=== PATIENT | male | born 1955 | race Native Hawaiian/Other Pacific Islander ===

== ENCOUNTER 2018-12-18 09:21 | Outpatient (CLI) | payer OTHER | END 2018-12-18 19:11 | disposition home or self-care (01) | LOC: US 09:21 | DX: R10.9 Unspecified abdominal pain (principal) ==

== ENCOUNTER 2018-12-27 12:55 | Outpatient (CLI) | payer OTHER | END 2018-12-27 19:22 | disposition home or self-care (01) | LOC: CT 12:55 | DX: R10.9 Unspecified abdominal pain (principal) | CPT/HCPCS: 36415; 82565; 84520; Q9963 ==

== ENCOUNTER 2018-12-29 18:15 | Inpatient (IN) | payer OTHER ==
[~2018-12-29] VITALS: Ht 177.8 cm; Wt 116.1 kg
[2018-12-29 20:00] VITALS: BP 147/86; TEMP 98.4
[2018-12-29 20:04] LABS: PLATELET COUNT 349 K/uL (142-355)
[2018-12-29 20:14] LABS: POTASSIUM 3.7 mmol/L (3.6-5.2)
[2018-12-30] VITALS (7 sets, daily range): BP systolic 111–149; BP diastolic 69–91; TEMP 97.7–99.3; Ht 177.8 cm; Wt 116.1 kg
[2018-12-31 04:00] VITALS: BP 125/74; TEMP 98.9
[2018-12-31 07:01] LABS: PLATELET COUNT 332 K/uL (142-355)
[2018-12-31 07:15] LABS: POTASSIUM 3.5 mmol/L (3.6-5.2)
[2018-12-31 08:00] VITALS: BP 132/79; TEMP 97.6
[2018-12-31 12:00] VITALS: BP 118/75; TEMP 98.1
[2018-12-31 16:00] VITALS: BP 118/84; TEMP 98.1
[2018-12-31 20:00] VITALS: BP 146/81; TEMP 98.2
[2019-01-01] VITALS: BP 141/83; TEMP 98.2
[2019-01-01 04:00] VITALS: BP 126/79; TEMP 98.2
[2019-01-01 08:08] VITALS: BP 126/76; TEMP 97.9
[2019-01-01 12:00] VITALS: BP 133/84; TEMP 97.6
[2019-01-01 16:00] VITALS: BP 126/76; TEMP 97.9
[2019-01-01 20:00] VITALS: BP 141/84; TEMP 98
[2019-01-02] VITALS (17 sets, daily range): BP systolic 103–199; BP diastolic 46–110; TEMP 97.4–98.7
[2019-01-02 18:49] LABS: PLATELET COUNT 351 K/uL (142-355)
[2019-01-02 19:52] LABS: POTASSIUM 3.9 mmol/L (3.6-5.2)
[2019-01-03] VITALS (15 sets, daily range): BP systolic 114–141; BP diastolic 53–86; TEMP 97.9–98.7
[2019-01-03 06:51] LABS: PLATELET COUNT 352 K/uL (142-355)
[2019-01-03 07:08] LABS: POTASSIUM 3.8 mmol/L (3.6-5.2)
[2019-01-04] VITALS: BP 99/72; TEMP 98.6
[2019-01-04 04:00] VITALS: BP 141/90; TEMP 97.9
[2019-01-04 06:05] LABS: POTASSIUM 3.6 mmol/L (3.6-5.2)
[2019-01-04 06:18] LABS: PLATELET COUNT 327 K/uL (142-355)
[2019-01-04 08:00] VITALS: BP 126/73; TEMP 97.6
[2019-01-04 12:00] VITALS: BP 160/89; TEMP 98.1
== END 2019-01-04 14:25 | disposition home or self-care (01) | DRG 416 ==
LOC: MED/SURG 18:15 → ICU 01-02 18:42 → MED/SURG 01-03 13:30
PROVIDERS: Student in an Organized Health Care Education/Training Program; ADMIT Internal Medicine
PROC: 0FT40ZZ Resection of Gallbladder, Open Approach (ICD-10-PCS; principal; 2019-01-02)
PROC: 0FJ44ZZ Inspection of Gallbladder, Percutaneous Endoscopic Approach (ICD-10-PCS; 2019-01-02)
PROC: 5A1935Z Respiratory Ventilation, Less than 24 Consecutive Hours (ICD-10-PCS; 2019-01-02)
PROC: 0BH17EZ Insertion of Endotracheal Airway into Trachea, Via Natural or Artificial Opening (ICD-10-PCS; 2019-01-02)
DX: K81.2 Acute cholecystitis with chronic cholecystitis (principal); E11.40 Type 2 diabetes mellitus with diabetic neuropathy, unspecified; R51 Headache; K21.9 Gastro-esophageal reflux disease without esophagitis; I10 Essential (primary) hypertension; R33.8 Other retention of urine
CPT/HCPCS: 80053; 81000; 83605; 85027; 87040; 87086; 87088; 93005; 94002; 94760; A9576; C1726; C1729; J0132; J0330; J0744; J1100; J1170; J1644; J1815; J1885; J2001; J2060; J2250; J2270; J2405; J2704; J2765; J3010; J3490

== ENCOUNTER 2019-02-10 04:35 | Inpatient (IN) | payer OTHER ==
[~2019-02-10] VITALS: Ht 175.3 cm; Wt 107.3 kg
[2019-02-10 04:42] VITALS: BP 143/85; TEMP 97.8
[2019-02-10 05:43] LABS: PLATELET COUNT 308 K/uL (142-355)
[2019-02-10 06:01] LABS: POTASSIUM 3.7 mmol/L (3.6-5.2); SODIUM 137 mmol/L (136-145)
[2019-02-10 12:00] VITALS: BP 148/95; TEMP 97.8
[2019-02-10] MEDS ORDERED: GABA300C2 PO (15:55)
[2019-02-10] MEDS ORDERED: METF500T PO (15:56)
[2019-02-10] MEDS ORDERED: METFTAB PO (17:06)
[2019-02-10] MEDS ORDERED: GLIM4TAB PO (17:07)
[2019-02-10 17:10] VITALS: BP 155/88; TEMP 97.9; Ht 175.3 cm; Wt 107.3 kg
[2019-02-10 20:00] VITALS: BP 130/75; TEMP 98.2
[2019-02-11] VITALS: BP 136/88; TEMP 98.3
[2019-02-11 04:00] VITALS: BP 108/75; TEMP 97.8
[2019-02-11 05:46] LABS: POTASSIUM 3.7 mmol/L (3.6-5.2)
[2019-02-11 08:00] VITALS: BP 142/91; TEMP 98.2
[2019-02-11 12:00] VITALS: BP 108/84; TEMP 97.9
[2019-02-11 16:00] VITALS: BP 142/83; TEMP 97.6
[2019-02-11 20:00] VITALS: BP 130/76; TEMP 98.4
[2019-02-12] VITALS: BP 136/78; TEMP 98.5
[2019-02-12 04:00] VITALS: BP 133/81; TEMP 98.2
[2019-02-12 08:00] VITALS: BP 148/92; TEMP 98.1
[2019-02-12 12:00] VITALS: BP 133/90; TEMP 97.4
[2019-02-12 16:00] VITALS: BP 134/91; TEMP 97.8
[2019-02-12 20:00] VITALS: BP 153/90; TEMP 98
[2019-02-13] VITALS: BP 122/74; TEMP 98.3
[2019-02-13 04:00] VITALS: BP 120/66; TEMP 98.3
[2019-02-13 08:00] VITALS: BP 118/77; TEMP 97.6
[2019-02-13 11:02] LABS: PLATELET COUNT 304 K/uL (142-355)
[2019-02-13 11:04] LABS: POTASSIUM 3.3 mmol/L (3.6-5.2)
[2019-02-13 12:00] VITALS: BP 121/81; TEMP 97.8
[2019-02-13 16:00] VITALS: BP 111/71; TEMP 97.8
[2019-02-13 20:00] VITALS: BP 113/66; TEMP 97.9
[2019-02-14] VITALS: BP 118/75; TEMP 97.5
[2019-02-14 04:00] VITALS: BP 121/78; TEMP 97.8
[2019-02-14 08:06] VITALS: BP 121/76; TEMP 98.5
[2019-02-14 10:19] LABS: POTASSIUM 3.6 mmol/L (3.6-5.2)
== END 2019-02-14 12:00 | disposition home or self-care (01) | DRG 948 ==
LOC: ED 04:35 → MED/SURG 07:00
PROVIDERS: Emergency Medicine; ADMIT Internal Medicine
DX: R60.0 Localized edema (principal); E11.42 Type 2 diabetes mellitus with diabetic polyneuropathy; E87.8 Other disorders of electrolyte and fluid balance, not elsewhere classified; I10 Essential (primary) hypertension; R79.89 Other specified abnormal findings of blood chemistry
CPT/HCPCS: 36600; 80048; 80053; 82550; 82553; 82805; 83880; 84484; 85027; 85379; 93005; 93306; 99283; J1644; J1650; J1815; J1885; J1940

== ENCOUNTER 2019-02-22 09:05 | Outpatient (CLI) | payer OTHER ==
[~2019-02-22 09:05] MED LIST: GABA300C2 PO; GLIM4TAB PO; METF500T PO; METFTAB PO
[2019-02-22 09:45] LABS: POTASSIUM 3.6 mmol/L (3.6-5.2)
== END 2019-02-22 19:16 | disposition home or self-care (01) ==
LOC: LABW 09:05
PROVIDERS: Internal Medicine
DX: Z79.899 Other long term (current) drug therapy (principal)
CPT/HCPCS: 36415; 80048

== ENCOUNTER 2019-03-29 07:45 | Outpatient (CLI) | payer OTHER | END 2019-03-29 23:08 | disposition home or self-care (01) | LOC: NM 07:45 | DX: R00.2 Palpitations (principal); R07.89 Other chest pain | CPT/HCPCS: A9500; J2785 ==

== ENCOUNTER 2019-05-11 09:03 | Outpatient (CLI) | payer OTHER ==
[2019-05-11 10:28] LABS: PLATELET COUNT 224 K/uL (142-355)
[2019-05-11 10:58] LABS: POTASSIUM 3.9 mmol/L (3.6-5.2)
== END 2019-05-11 23:31 | disposition home or self-care (01) ==
LOC: LABW 09:03
PROVIDERS: Nurse Practitioner
DX: E11.43 Type 2 diabetes mellitus with diabetic autonomic (poly)neuropathy (principal); E78.00 Pure hypercholesterolemia, unspecified; E55.9 Vitamin D deficiency, unspecified; E53.8 Deficiency of other specified B group vitamins; Z12.5 Encounter for screening for malignant neoplasm of prostate; R53.82 Chronic fatigue, unspecified; N40.0 Benign prostatic hyperplasia without lower urinary tract symptoms
CPT/HCPCS: 36415; 80053; 80061; 82043; 82306; 82570; 82607; 83036; 84153; 84443; 85027

== ENCOUNTER 2019-10-15 13:30 | Outpatient (CLI) | payer OTHER | END 2019-10-15 19:28 | disposition home or self-care (01) | LOC: LAB 13:30 | DX: E11.43 Type 2 diabetes mellitus with diabetic autonomic (poly)neuropathy (principal); E03.8 Other specified hypothyroidism; E55.9 Vitamin D deficiency, unspecified | CPT/HCPCS: 82306; 83036; 84439; 84443; 84481 ==

== ENCOUNTER 2019-11-25 19:16 | Inpatient (IN) | payer OTHER ==
[~2019-11-25] VITALS: Ht 175.3 cm; Wt 118.1 kg
[2019-11-25 19:25] VITALS: BP 130/78; TEMP 102.5
[2019-11-25 19:57] LABS: PLATELET COUNT 447 K/uL (142-355)
[2019-11-25 20:00] VITALS: BP 129/76
[2019-11-25 20:01] LABS: POTASSIUM 3.8 mmol/L (3.6-5.2)
[2019-11-25 20:30] VITALS: BP 119/67
[2019-11-25 21:00] VITALS: BP 120/79
[2019-11-25 21:30] VITALS: BP 119/68; TEMP 97.7
--- NOTE | 2019-11-25 21:45 | NUR ---
RECEIVED FROM ER VIA WC. ALERT AND ORIENTED X 3. EDUCATION GIVEN REGARDING CALL LIGHT AND BED CONTROLS. INSTRUCTED TO KEEP BED IN LOW POSITION. PATIENT VEBALIZED UNDERSTANDING. 20G TO LAC INTACT WITH NS INFUSING AT 200CC/HR. REFER TO ADMISSION ASSESSMENT FOR FUTHER DETAILS.
[2019-11-25 22:19] VITALS: BP 108/71; TEMP 97.8; Ht 175.3 cm; Wt 118.1 kg
[2019-11-26] VITALS: BP 104/62; TEMP 98.8
[2019-11-26 04:00] VITALS: BP 111/65; TEMP 97.4
[2019-11-26 08:00] VITALS: BP 126/74; TEMP 97.5
[2019-11-26 12:00] VITALS: BP 124/72; TEMP 98.1
[2019-11-26 16:00] VITALS: BP 130/75; TEMP 100.8
[2019-11-26] MEDS ORDERED: GABA300C2 PO (16:31)
[2019-11-26] MEDS ORDERED: LIPITOR20 MG PO (16:32)
[2019-11-26] MEDS ORDERED: ERGOCALCIF50000 UNIT PO (16:34)
[2019-11-26] MEDS ORDERED: LEVO-T25 MCG PO (16:34)
[2019-11-26] MEDS ORDERED: OMEPRAZOLE40 MG PO (16:35)
[2019-11-26] MEDS ORDERED: QBRELIS1 MG/ML PO (16:36)
[2019-11-26] MEDS ORDERED: LEVSIN/SL0.125 MG SL (16:36)
[2019-11-26] MEDS ORDERED: FURO40TA93 PO (16:37)
[2019-11-26] MEDS ORDERED: MONT10TA PO (16:38)
[2019-11-26] MEDS ORDERED: TRICOR145 M1 PO (16:38)
[2019-11-26] MEDS ORDERED: ALBU90AE13 INH (16:39)
[2019-11-26 20:00] VITALS: BP 123/64; TEMP 98.6
[2019-11-27] VITALS: BP 131/74; TEMP 101.9
[2019-11-27 04:00] VITALS: BP 121/69; TEMP 98.2
--- NOTE | 2019-11-27 05:10 | NUR ---
HOLD METFORMIN X 48 HOURS PER PROTOCOL
[2019-11-27 08:00] VITALS: BP 121/77; TEMP 97.4
[2019-11-27 08:06] LABS: PLATELET COUNT 418 K/uL (142-355)
[2019-11-27 08:29] LABS: POTASSIUM 3.1 mmol/L (3.6-5.2)
[2019-11-27 11:50] LABS: PARTIAL THROMBOPLASTIN TIME 26.9 SECONDS (24.5-33.6)
[2019-11-27 12:00] VITALS: BP 131/71; TEMP 97.7
[2019-11-27 16:00] VITALS: BP 134/84; TEMP 97.6
--- NOTE | 2019-11-27 18:21 | NUR ---
1600 REC'D CALL FROM [facility] WITH DR. LOERA. PT NEEDS TO BE NPO AFTER 0600 ON 11-28-2019 FOR PROCEDURE TO BE PREFORMED AROUND 1130.
[2019-11-27 20:00] VITALS: BP 116/73; TEMP 103
[2019-11-28] VITALS (7 sets, daily range): BP systolic 116–129; BP diastolic 66–80; TEMP 97.8–99.4
[2019-11-28 04:41] LABS: PLATELET COUNT 432 K/uL (142-355)
[2019-11-28 04:59] LABS: POTASSIUM 3.2 mmol/L (3.6-5.2)
--- NOTE | 2019-11-28 15:18 | NUR ---
PT BACK FROM PROCEDURE DRAIN TUBE NOTED TO RIGHT LOWER QUAD WITH APROX 100 CC JAMES MILKING DRAINAGE NOTED IN BAG
[2019-11-29 04:00] VITALS: BP 119/70; TEMP 98.1
[2019-11-29 08:00] VITALS: BP 114/65; TEMP 97.8
[2019-11-29 10:08] LABS: PLATELET COUNT 455 K/uL (142-355)
[2019-11-29 10:10] LABS: POTASSIUM 3.3 mmol/L (3.6-5.2)
[2019-11-29 12:00] VITALS: BP 131/84; TEMP 97.8
== END 2019-11-29 14:18 | disposition home or self-care (01) | DRG 871 ==
LOC: ED 19:16 → MED/SURG 21:00
PROVIDERS: Family Medicine; Hospitalist; ADMIT Internal Medicine
PROC: 0F9130Z Drainage of Right Lobe Liver with Drainage Device, Percutaneous Approach (ICD-10-PCS; principal; 2019-11-28)
DX: A41.89 Other specified sepsis (principal); K75.0 Abscess of liver; E46 Unspecified protein-calorie malnutrition; E03.8 Other specified hypothyroidism; E11.65 Type 2 diabetes mellitus with hyperglycemia; I10 Essential (primary) hypertension; E78.49 Other hyperlipidemia; K21.9 Gastro-esophageal reflux disease without esophagitis; E87.6 Hypokalemia; I50.9 Heart failure, unspecified
CPT/HCPCS: 36415; 80048; 80053; 80202; 81000; 81002; 82550; 82948; 83605; 83735; 84484; 85027; 85610; 85730; 87040; 87070; 87076; 87205; 87502; 87651; 87899; 93005; 94640; 94664; 94760; 96360; 96361; 96365; 96366; 99284; J1650; J1815; J1956; J2185; J3370; J3475; Q9963

== ENCOUNTER 2019-12-13 08:57 | Outpatient (CLI) | payer OTHER ==
[~2019-12-13 08:57] MED LIST changes: +ALBU90AE13 INH; +ERGOCALCIF50000 UNIT PO; +FURO40TA93 PO; +LEVO-T25 MCG PO; +LEVSIN/SL0.125 MG SL; +LIPITOR20 MG PO; +MONT10TA PO; +OMEPRAZOLE40 MG PO; +QBRELIS1 MG/ML PO; +TRICOR145 M1 PO
== END 2019-12-13 23:04 | disposition home or self-care (01) ==
LOC: CT 08:57
DX: R18.8 Other ascites (principal)
CPT/HCPCS: Q9963

== ENCOUNTER 2020-05-26 11:57 | Outpatient (CLI) | payer OTHER | END 2020-05-26 21:50 | disposition home or self-care (01) | LOC: LAB 11:57 | DX: Z20.828 Contact with and (suspected) exposure to other viral communicable diseases (principal) | CPT/HCPCS: 87635; G2023; U00003 ==

== ENCOUNTER 2020-08-27 10:22 | Emergency (ER) | payer OTHER ==
[~2020-08-27] VITALS: Ht 177.8 cm; Wt 103.9 kg
[2020-08-27 10:28] VITALS: BP 111/75; TEMP 98
== END 2020-08-27 12:56 | disposition home or self-care (01) ==
LOC: ED 10:22
PROC: 0HDGXZZ Extraction of Left Hand Skin, External Approach (ICD-10-PCS; principal; 2020-08-27)
DX: S61.102A Unspecified open wound of left thumb with damage to nail, initial encounter (principal); W27.8XXA Contact with other nonpowered hand tool, initial encounter; Y93.H2 Activity, gardening and landscaping; Y92.89 Other specified places as the place of occurrence of the external cause
CPT/HCPCS: 90471; 90715; 99283; J3490

== ENCOUNTER 2021-01-06 14:01 | Outpatient (CLI) | payer OTHER ==
[2021-01-06 15:08] LABS: PLATELET COUNT 451 K/uL (142-355)
[2021-01-06 15:19] LABS: POTASSIUM 2.7 mmol/L (3.6-5.2)
== END 2021-01-06 21:08 | disposition home or self-care (01) ==
LOC: LABW 14:01
PROVIDERS: ATTEND Nurse Practitioner Family
DX: C15.4 Malignant neoplasm of middle third of esophagus (principal)
CPT/HCPCS: 36415; 80053; 85027; 85044

== ENCOUNTER 2021-03-06 07:00 | Emergency (ER) | payer OTHER ==
[~2021-03-06] VITALS: Ht 177.8 cm; Wt 80.7 kg
[2021-03-06 07:00] VITALS: TEMP 97.9
[2021-03-06 08:01] LABS: PLATELET COUNT 511 K/uL (142-355)
[2021-03-06 08:38] LABS: POTASSIUM 3.7 mmol/L (3.6-5.2); SODIUM 132 mmol/L (136-145)
[2021-03-06 08:41] LABS: PARTIAL THROMBOPLASTIN TIME 27.3 SECONDS (24.5-33.6)
[2021-03-06 11:36] VITALS: BP 118/74
== END 2021-03-06 11:36 | disposition home or self-care (01) ==
LOC: ED 07:23
PROVIDERS: Hospitalist
DX: C14.0 Malignant neoplasm of pharynx, unspecified (principal); C79.51 Secondary malignant neoplasm of bone; C77.9 Secondary and unspecified malignant neoplasm of lymph node, unspecified; R11.0 Nausea; R53.1 Weakness; J18.9 Pneumonia, unspecified organism; R06.02 Shortness of breath
CPT/HCPCS: 80053; 81000; 82550; 83605; 83880; 84484; 85027; 85610; 85730; 93005; 96360; 96365; 96375; 99284; J0696; J2405

== ENCOUNTER 2021-03-09 09:49 | Outpatient (CLI) | payer OTHER ==
[2021-03-09 10:00] LABS: PLATELET COUNT 518 K/uL (142-355)
[2021-03-09 10:21] LABS: POTASSIUM 3.5 mmol/L (3.6-5.2)
== END 2021-03-09 19:44 | disposition home or self-care (01) ==
LOC: LABW 09:49
PROVIDERS: ATTEND Internal Medicine Medical Oncology
DX: C15.4 Malignant neoplasm of middle third of esophagus (principal); D64.89 Other specified anemias; E53.8 Deficiency of other specified B group vitamins; R53.81 Other malaise
CPT/HCPCS: 36415; 80053; 85027

== ENCOUNTER 2021-03-23 09:20 | Outpatient (CLI) | payer OTHER ==
[2021-03-23 10:16] LABS: PLATELET COUNT 316 K/uL (142-355)
[2021-03-23 10:29] LABS: POTASSIUM 4.2 mmol/L (3.6-5.2)
== END 2021-03-23 19:14 | disposition home or self-care (01) ==
LOC: LABW 09:20
PROVIDERS: ATTEND Nurse Practitioner Adult Health
DX: C15.4 Malignant neoplasm of middle third of esophagus (principal); D64.89 Other specified anemias; E53.8 Deficiency of other specified B group vitamins; R53.81 Other malaise
CPT/HCPCS: 36415; 80053; 84443; 85027

== ENCOUNTER 2021-03-31 09:17 | Outpatient (CLI) | payer OTHER ==
[2021-03-31 09:32] LABS: PLATELET COUNT 274 K/uL (142-355)
[2021-03-31 09:53] LABS: POTASSIUM 3.3 mmol/L (3.6-5.2)
== END 2021-03-31 21:57 | disposition home or self-care (01) ==
LOC: LABW 09:17
PROVIDERS: ATTEND Nurse Practitioner Adult Health
DX: C15.4 Malignant neoplasm of middle third of esophagus (principal); D64.89 Other specified anemias; E53.8 Deficiency of other specified B group vitamins; R53.81 Other malaise
CPT/HCPCS: 36415; 80053; 85027

== ENCOUNTER 2021-04-06 09:09 | Outpatient (CLI) | payer OTHER ==
[2021-04-06 09:22] LABS: PLATELET COUNT 361 K/uL (142-355)
[2021-04-06 10:17] LABS: POTASSIUM 3.1 mmol/L (3.6-5.2)
== END 2021-04-06 19:53 | disposition home or self-care (01) ==
LOC: LABW 09:09
PROVIDERS: ATTEND Internal Medicine Medical Oncology
DX: C15.4 Malignant neoplasm of middle third of esophagus (principal); D64.89 Other specified anemias; E53.8 Deficiency of other specified B group vitamins; R53.81 Other malaise
CPT/HCPCS: 36415; 80053; 85027

== ENCOUNTER 2021-06-02 09:51 | Outpatient (CLI) | payer OTHER ==
[2021-06-02 10:11] LABS: PLATELET COUNT 601 K/uL (142-355)
[2021-06-02 10:44] LABS: POTASSIUM 4.1 mmol/L (3.6-5.2)
== END 2021-06-02 21:53 | disposition home or self-care (01) ==
LOC: LABW 09:51
PROVIDERS: ATTEND Internal Medicine Medical Oncology
DX: C15.4 Malignant neoplasm of middle third of esophagus (principal); D64.89 Other specified anemias; E53.8 Deficiency of other specified B group vitamins; R53.81 Other malaise
CPT/HCPCS: 36415; 80053; 84443; 85007; 85027

== ENCOUNTER 2021-06-10 09:04 | Outpatient (CLI) | payer OTHER ==
[2021-06-10 09:23] LABS: PLATELET COUNT 555 K/uL (142-355)
[2021-06-10 09:38] LABS: POTASSIUM 4.1 mmol/L (3.6-5.2)
== END 2021-06-10 19:40 | disposition home or self-care (01) ==
LOC: LABW 09:04
PROVIDERS: ATTEND Internal Medicine Medical Oncology
DX: C15.4 Malignant neoplasm of middle third of esophagus (principal); D64.89 Other specified anemias; E53.8 Deficiency of other specified B group vitamins; R53.81 Other malaise
CPT/HCPCS: 36415; 80053; 85027

== ENCOUNTER 2021-06-16 09:30 | Outpatient (CLI) | payer OTHER ==
[2021-06-16 09:58] LABS: PLATELET COUNT 325 K/uL (142-355)
[2021-06-16 10:12] LABS: POTASSIUM 3.9 mmol/L (3.6-5.2)
== END 2021-06-16 20:35 | disposition home or self-care (01) ==
LOC: LABW 09:30
PROVIDERS: ATTEND Internal Medicine Medical Oncology
DX: C15.4 Malignant neoplasm of middle third of esophagus (principal); D64.89 Other specified anemias; E53.8 Deficiency of other specified B group vitamins; R53.81 Other malaise
CPT/HCPCS: 36415; 80053; 85027

== ENCOUNTER 2021-06-25 08:49 | Outpatient (CLI) | payer OTHER ==
[2021-06-25 09:01] LABS: PLATELET COUNT 357 K/uL (142-355)
[2021-06-25 09:35] LABS: POTASSIUM 3.8 mmol/L (3.6-5.2)
== END 2021-06-25 20:22 | disposition home or self-care (01) ==
LOC: LABW 08:49
PROVIDERS: ATTEND Internal Medicine Medical Oncology
DX: C15.4 Malignant neoplasm of middle third of esophagus (principal); D64.89 Other specified anemias; E53.8 Deficiency of other specified B group vitamins; R53.81 Other malaise
CPT/HCPCS: 36415; 80053; 85027

== ENCOUNTER 2021-06-30 09:07 | Outpatient (CLI) | payer OTHER ==
[2021-06-30 09:26] LABS: PLATELET COUNT 299 K/uL (142-355)
[2021-06-30 09:33] LABS: POTASSIUM 4.3 mmol/L (3.6-5.2)
== END 2021-06-30 19:21 | disposition home or self-care (01) ==
LOC: LABW 09:07
PROVIDERS: ATTEND Internal Medicine Medical Oncology
DX: C79.71 Secondary malignant neoplasm of right adrenal gland (principal); C79.72 Secondary malignant neoplasm of left adrenal gland; C15.4 Malignant neoplasm of middle third of esophagus; D64.89 Other specified anemias; E53.8 Deficiency of other specified B group vitamins; R53.81 Other malaise
CPT/HCPCS: 36415; 80053; 85027

== ENCOUNTER 2021-07-08 09:10 | Outpatient (CLI) | payer OTHER ==
[2021-07-08 09:36] LABS: PLATELET COUNT 323 K/uL (142-355)
[2021-07-08 09:38] LABS: POTASSIUM 3.8 mmol/L (3.6-5.2)
== END 2021-07-08 21:08 | disposition home or self-care (01) ==
LOC: LABW 09:10
PROVIDERS: ATTEND Internal Medicine Medical Oncology
DX: C79.71 Secondary malignant neoplasm of right adrenal gland (principal); C79.72 Secondary malignant neoplasm of left adrenal gland; C15.4 Malignant neoplasm of middle third of esophagus; D64.89 Other specified anemias; E53.8 Deficiency of other specified B group vitamins; R53.81 Other malaise
CPT/HCPCS: 36415; 80053; 85027

== ENCOUNTER 2021-07-14 14:49 | Outpatient (CLI) | payer OTHER ==
[2021-07-14 14:57] LABS: POTASSIUM 4.1 mmol/L (3.6-5.2)
[2021-07-14 15:00] LABS: PLATELET COUNT 308 K/uL (142-355)
== END 2021-07-14 22:16 | disposition home or self-care (01) ==
LOC: LAB 14:49
PROVIDERS: ATTEND Internal Medicine Medical Oncology
DX: C79.71 Secondary malignant neoplasm of right adrenal gland (principal); C79.72 Secondary malignant neoplasm of left adrenal gland; C15.4 Malignant neoplasm of middle third of esophagus; D64.89 Other specified anemias; E53.8 Deficiency of other specified B group vitamins; R53.81 Other malaise
CPT/HCPCS: 36415; 80053; 85027

== ENCOUNTER 2021-07-22 09:28 | Outpatient (CLI) | payer OTHER ==
[2021-07-22 09:55] LABS: PLATELET COUNT 339 K/uL (142-355)
[2021-07-22 10:38] LABS: POTASSIUM 4.5 mmol/L (3.6-5.2)
== END 2021-07-22 23:00 | disposition home or self-care (01) ==
LOC: LABW 09:28
PROVIDERS: ATTEND Internal Medicine Medical Oncology
DX: C79.71 Secondary malignant neoplasm of right adrenal gland (principal); C79.72 Secondary malignant neoplasm of left adrenal gland; C15.4 Malignant neoplasm of middle third of esophagus; D64.89 Other specified anemias; E53.8 Deficiency of other specified B group vitamins; R53.81 Other malaise
CPT/HCPCS: 36415; 80053; 84443; 85027

== ENCOUNTER 2021-07-28 09:32 | Outpatient (CLI) | payer OTHER ==
[2021-07-28 10:05] LABS: PLATELET COUNT 309 K/uL (142-355)
[2021-07-28 10:15] LABS: POTASSIUM 3.5 mmol/L (3.6-5.2)
== END 2021-07-28 20:33 | disposition home or self-care (01) ==
LOC: LABW 09:32
PROVIDERS: ATTEND Internal Medicine Medical Oncology
DX: C79.71 Secondary malignant neoplasm of right adrenal gland (principal); C79.72 Secondary malignant neoplasm of left adrenal gland; C15.4 Malignant neoplasm of middle third of esophagus; D64.89 Other specified anemias; E53.8 Deficiency of other specified B group vitamins; R53.81 Other malaise
CPT/HCPCS: 36415; 80053; 85027

== ENCOUNTER → 2021-08-05 | Outpatient (CLI) | payer OTHER ==
[2021-08-05 09:32] LABS: PLATELET COUNT 342 K/uL (142-355)
== END ==
LOC: LABW 09:03
PROVIDERS: ATTEND Internal Medicine Medical Oncology
DX: C79.71 Secondary malignant neoplasm of right adrenal gland (principal); C79.72 Secondary malignant neoplasm of left adrenal gland; C15.4 Malignant neoplasm of middle third of esophagus; D64.89 Other specified anemias; E53.8 Deficiency of other specified B group vitamins; R53.81 Other malaise
CPT/HCPCS: 36415; 80053; 82728; 83540; 83550; 85027

== ENCOUNTER 2021-08-11 09:15 | Outpatient (CLI) | payer OTHER ==
[2021-08-11 09:56] LABS: POTASSIUM 3.9 mmol/L (3.6-5.2)
[2021-08-11 10:07] LABS: PLATELET COUNT 377 K/uL (142-355)
== END 2021-08-11 20:07 | disposition home or self-care (01) ==
LOC: LABW 09:15
PROVIDERS: ATTEND Internal Medicine Medical Oncology
DX: C79.71 Secondary malignant neoplasm of right adrenal gland (principal); C79.72 Secondary malignant neoplasm of left adrenal gland; C15.4 Malignant neoplasm of middle third of esophagus; D64.89 Other specified anemias; E53.8 Deficiency of other specified B group vitamins; R53.81 Other malaise
CPT/HCPCS: 36415; 80053; 85027

== ENCOUNTER 2021-08-19 09:09 | Outpatient (CLI) | payer OTHER ==
[2021-08-19 09:20] LABS: PLATELET COUNT 357 K/uL (142-355)
[2021-08-19 09:39] LABS: POTASSIUM 3.8 mmol/L (3.6-5.2)
== END 2021-08-19 19:01 | disposition home or self-care (01) ==
LOC: LABW 09:09
PROVIDERS: ATTEND Internal Medicine Medical Oncology
DX: C79.71 Secondary malignant neoplasm of right adrenal gland (principal); C79.72 Secondary malignant neoplasm of left adrenal gland; C15.4 Malignant neoplasm of middle third of esophagus; D64.89 Other specified anemias; E53.8 Deficiency of other specified B group vitamins; R53.81 Other malaise
CPT/HCPCS: 36415; 80053; 84443; 85027

== ENCOUNTER 2021-08-25 09:09 | Outpatient (CLI) | payer OTHER ==
[2021-08-25 09:30] LABS: PLATELET COUNT 303 K/uL (142-355)
[2021-08-25 09:59] LABS: POTASSIUM 3.5 mmol/L (3.6-5.2)
== END 2021-08-25 19:26 | disposition home or self-care (01) ==
LOC: LABW 09:09
PROVIDERS: ATTEND Internal Medicine Medical Oncology
DX: C79.71 Secondary malignant neoplasm of right adrenal gland (principal); C79.72 Secondary malignant neoplasm of left adrenal gland; C15.4 Malignant neoplasm of middle third of esophagus; D64.89 Other specified anemias; E53.8 Deficiency of other specified B group vitamins; R53.81 Other malaise
CPT/HCPCS: 36415; 80053; 85027

== ENCOUNTER 2021-09-07 09:17 | Outpatient (CLI) | payer OTHER ==
[2021-09-07 09:41] LABS: PLATELET COUNT 292 K/uL (142-355)
[2021-09-07 10:06] LABS: POTASSIUM 4.1 mmol/L (3.6-5.2)
== END 2021-09-07 20:04 | disposition home or self-care (01) ==
LOC: LABW 09:17
PROVIDERS: ATTEND Internal Medicine Medical Oncology
DX: C79.71 Secondary malignant neoplasm of right adrenal gland (principal); C79.72 Secondary malignant neoplasm of left adrenal gland; C15.4 Malignant neoplasm of middle third of esophagus; D64.89 Other specified anemias; E53.8 Deficiency of other specified B group vitamins; R53.81 Other malaise
CPT/HCPCS: 36415; 80053; 85027

== ENCOUNTER 2021-10-05 08:47 | Outpatient (CLI) | payer OTHER ==
[2021-10-05 10:04] LABS: PLATELET COUNT 348 K/uL (142-355)
[2021-10-05 10:27] LABS: POTASSIUM 3.9 mmol/L (3.6-5.2)
== END 2021-10-05 21:46 | disposition home or self-care (01) ==
LOC: LAB 08:47
PROVIDERS: ATTEND Internal Medicine Medical Oncology
DX: C79.71 Secondary malignant neoplasm of right adrenal gland (principal); C79.72 Secondary malignant neoplasm of left adrenal gland; C15.4 Malignant neoplasm of middle third of esophagus; D64.89 Other specified anemias; E53.8 Deficiency of other specified B group vitamins; R53.81 Other malaise
CPT/HCPCS: 36415; 80053; 84436; 84439; 84443; 84479; 85027

== ENCOUNTER 2022-01-05 08:10 | Outpatient (CLI) | payer OTHER ==
[2022-01-05 08:46] LABS: PLATELET COUNT 415 K/uL (142-355)
[2022-01-05 09:04] LABS: POTASSIUM 3.6 mmol/L (3.6-5.2)
== END 2022-01-05 18:50 | disposition home or self-care (01) ==
LOC: LABW 08:10
PROVIDERS: ATTEND Internal Medicine Medical Oncology
DX: C79.71 Secondary malignant neoplasm of right adrenal gland (principal); C79.72 Secondary malignant neoplasm of left adrenal gland; C15.4 Malignant neoplasm of middle third of esophagus; G62.0 Drug-induced polyneuropathy; G89.3 Neoplasm related pain (acute) (chronic); D64.89 Other specified anemias; E53.8 Deficiency of other specified B group vitamins; R53.81 Other malaise
CPT/HCPCS: 36415; 80053; 84436; 84439; 84443; 84479; 85027

== ENCOUNTER 2022-02-02 07:52 | Outpatient (CLI) | payer OTHER ==
[2022-02-02 08:16] LABS: PLATELET COUNT 457 K/uL (142-355)
[2022-02-02 08:38] LABS: POTASSIUM 3.4 mmol/L (3.6-5.2)
== END 2022-02-02 18:58 | disposition home or self-care (01) ==
LOC: LABW 07:52
PROVIDERS: ATTEND Internal Medicine Medical Oncology
DX: C15.4 Malignant neoplasm of middle third of esophagus (principal); C79.71 Secondary malignant neoplasm of right adrenal gland; C79.72 Secondary malignant neoplasm of left adrenal gland; D64.89 Other specified anemias; E53.8 Deficiency of other specified B group vitamins; R53.81 Other malaise; G62.0 Drug-induced polyneuropathy; G89.3 Neoplasm related pain (acute) (chronic)
CPT/HCPCS: 36415; 80053; 84436; 84439; 84443; 84479; 85027

== ENCOUNTER 2023-05-29 04:32 | Emergency (ER) | payer OTHER ==
[~2023-05-29] VITALS: Ht 177.8 cm; Wt 103.0 kg
[2023-05-29 04:38] VITALS: TEMP 97.7
[2023-05-29 07:28] LABS: PLATELET COUNT 325 K/uL (142-355)
[2023-05-29 07:38] LABS: POTASSIUM 3.9 mmol/L (3.6-5.2)
[2023-05-29 10:38] VITALS: BP 131/78
== END 2023-05-29 10:46 | disposition home or self-care (01) ==
LOC: ED 04:32
PROVIDERS: Family Medicine
DX: G93.6 Cerebral edema (principal); R56.9 Unspecified convulsions
CPT/HCPCS: 80053; 85027; 96372; 99284; J1100

== ENCOUNTER 2023-06-28 11:42 | Observation (INO) | payer OTHER ==
[~2023-06-28] VITALS: Ht 175.3 cm; Wt 99.6 kg
[2023-06-28] VITALS (9 sets, daily range): BP systolic 91–109; BP diastolic 54–68; TEMP 97.2–98.3; Ht 175.3 cm; Wt 99.6 kg
[2023-06-28 12:15] LABS: PLATELET COUNT 316 K/uL (142-355)
[2023-06-28 12:33] LABS: POTASSIUM 4.6 mmol/L (3.6-5.2)
[2023-06-29] VITALS: BP 117/63; TEMP 98.3
[2023-06-29 04:00] VITALS: BP 117/62; TEMP 98.7
[2023-06-29 05:27] LABS: PLATELET COUNT 263 K/uL (142-355)
[2023-06-29 07:56] VITALS: BP 102/59; TEMP 97.8
[2023-06-29 12:00] VITALS: BP 109/66; TEMP 98.8
== END 2023-06-29 14:38 | disposition home or self-care (01) ==
LOC: ED 11:42 → MED/SURG 14:04
PROVIDERS: Family Medicine; ADMIT Nurse Practitioner Family; ATTEND Internal Medicine Endocrinology, Diabetes & Metabolism
DX: N17.8 Other acute kidney failure (principal); E11.40 Type 2 diabetes mellitus with diabetic neuropathy, unspecified; C14.0 Malignant neoplasm of pharynx, unspecified; C79.31 Secondary malignant neoplasm of brain; E03.8 Other specified hypothyroidism; J44.9 Chronic obstructive pulmonary disease, unspecified; K21.9 Gastro-esophageal reflux disease without esophagitis; E86.9 Volume depletion, unspecified
CPT/HCPCS: 80048; 80053; 81002; 82948; 84439; 84443; 84484; 85007; 85027; 93005; 96360; 96361; 96374; 96375; 96376; 99221; 99284; G0378; J2270; J2405

== ENCOUNTER 2023-07-06 20:22 | Emergency (ER) | payer OTHER ==
[~2023-07-06] VITALS: Ht 175.3 cm; Wt 104.3 kg
[2023-07-06 21:36] LABS: POTASSIUM 4.1 mmol/L (3.6-5.2)
[2023-07-07 00:55] VITALS: BP 105/60; TEMP 97.9
== END 2023-07-07 00:55 | disposition home or self-care (01) ==
LOC: ED 20:22
PROVIDERS: Family Medicine
DX: R56.9 Unspecified convulsions (principal); C79.31 Secondary malignant neoplasm of brain; I10 Essential (primary) hypertension
CPT/HCPCS: 80053; 99283